=== PATIENT | female | born 1955 | race Caucasian/White ===

== ENCOUNTER 2024-12-02 12:50 | Outpatient (CLI) | payer OTHER ==
[~2024-12-02 12:50] MED LIST: AMLODIPINE-OLM1 EAC1 PO; ZESTRIL20 MG PO
== END 2024-12-02 12:54 | disposition home or self-care (01) ==
LOC: MAMO-SONO 12:50
PROVIDERS: ATTEND Family Medicine
DX: N60.29 Fibroadenosis of unspecified breast (principal); Z12.31 Encounter for screening mammogram for malignant neoplasm of breast